=== PATIENT | female | born 1980 | race Caucasian/White ===

== ENCOUNTER 2018-08-15 18:47 | Emergency (ER) | payer BC, MEDICAID ==
[2018-08-15 19:05] VITALS: BP 115/87
--- NOTE | 2018-08-15 19:26 | UC ---
UC General HPI - HPI Summary HPI Summary: pt picked a bite on her R galdamez. about 1-2 days later, it got warm. the area is now red and hot. no fever, chills or hx mrsa. - History of Current Complaint Chief Complaint: UCBiteInjury Stated Complaint: RT LEG BITE, POSS INFECTION Time Seen by Provider: 08/15/18 18:55 Hx Obtained From: Patient, Family/Technical Healthcare Consultant Hx Last Menstrual Period: 08/09/18 Onset/Duration: Gradual Onset Timing: Constant Pain Intensity: 4 - Allergy/Home Medications Allergies/Adverse Reactions: Allergies Allergy/AdvReac Type Severity Reaction Status Date / Time No Known Allergies Allergy Verified 08/15/18 19:05 Home Medications: Home Medications Lansoprazole [Prevacid] 30 mg PO DAILY 08/15/18 [History Confirmed 08/15/18] Levothyroxine Sodium 25 mcg PO DAILY 08/15/18 [History Confirmed 08/15/18] Norethindrone-E.estradiol-Iron [Tri-Legest Fe] 1 tab PO DAILY 08/15/18 [History Confirmed 08/15/18] raNITIdine HCl [Ranitidine HCl] 150 mg PO DAILY 08/15/18 [History Confirmed 07/29] PMH/Surg Hx/FS Hx/Imm Hx - Additional Past Medical History Additional PMH: blind Endocrine History: Thyroid Disease GI/ History: Gastroesophageal Reflux - Surgical History Surgical History: Yes Surgery Procedure, Year, and Place: gallbladder removal - Family History Known Family History: Positive: Non-Contributory - Social History Lives: With Family Alcohol Use: None Substance Use Type: None Smoking Status (MU): Never Smoked Tobacco Review of Systems All Other Systems Reviewed And Are Negative: No Constitutional: Negative: Fever, Chills Skin: Positive: Rash Gastrointestinal: Negative: Vomiting, Nausea Musculoskeletal: Negative: Arthralgia Physical Exam Triage Information Reviewed: Yes Appearance: Well-Appearing Vital Signs: Initial Vital Signs Temp 97.4 F 08/15/18 19:00 Pulse 89 08/15/18 19:00 Resp 16 08/15/18 19:00 BP 115/87 08/15/18 19:00 Pulse Ox 99 08/15/18 19:00 Vital Signs Reviewed: Yes Eyes: Positive: Conjunctiva Clear Neck: Positive: Supple Respiratory: Positive: Lungs clear Cardiovascular: Positive: RRR Abdomen Description: Positive: Nontender Musculoskeletal: Positive: ROM Intact Neurological: Positive: Alert Psychological: Positive: Age Appropriate Behavior Skin Exam: Normal Skin: Positive: Rashes - R lower 2/3rds of anterior galdamez with erythema and warmth. small area of excoriation at top of cellulitis. infection is not circumfrential and there is no streaking. RLE has full s/v/m function. Course/Dx - Diagnoses Provider Diagnosis: Cellulitis Discharge - Sign-Out/Discharge Documenting (check all that apply): Patient Departure All imaging exams completed and their final reports reviewed: No Studies - Discharge Plan Condition: Stable Disposition: HOME Prescriptions: Cephalexin CAP* [Keflex CAP*] 500 mg PO TID 10 Days #30 cap Patient Education Materials: Cellulitis (DC) Referrals: Jonh Mclain DO [Primary Care Provider] - 2 Days - Billing Disposition and Condition Condition: STABLE Disposition: Home
== END 2018-08-15 19:32 | disposition home or self-care (01) ==
LOC: UCCORT 18:47
DX: L03.115 Cellulitis of right lower limb (principal); K21.9 Gastro-esophageal reflux disease without esophagitis; E07.9 Disorder of thyroid, unspecified
CPT/HCPCS: 99202; G0463